=== PATIENT | female | born 1975 | race Two or more races ===

== ENCOUNTER → 2020-05-16 | Outpatient (CLI) | payer OTHER ==
--- NOTE | 2020-05-27 15:39 | REPMRS ---
Patient History The patient states she has not had a clinical breast exam in over a year. Family history of endometrial cancer at age 72 in paternal grandmother, pancreatic cancer at age 60 in maternal grandmother. Digital Woman Screen Mammo: May 16, 2020 - Exam #: [id number] Bilateral CC and MLO view(s) were taken. Technologist: Stephany Dunn, Technologist No prior studies available for comparison. FINDINGS: The breast tissue is heterogeneously dense. This may lower the sensitivity of mammography. The Volpara volumetric breast density category is: C. There is no evidence of dominant mass, architectural distortion, or grouped microcalcification typical of malignancy. 3-D tomosynthesis shows no additional findings. Assessment: BI-RADS/ACR category 1 mammogram. Negative Mammogram. Recommendation Routine screening mammogram of both breasts in 1 year (for women over age 40). This patient's [facility] Lifetime Breast Cancer RIsk is estimated at %. This mammogram was interpreted with the aid of an FDA-approved computer-aided dectection system. Electronically Signed By: Vazquez Delgado MD 05/27/20 [id number]
== END ==
LOC: M WHC 14:51
PROVIDERS: ATTEND Nurse Practitioner Primary Care
DX: Z12.31 Encounter for screening mammogram for malignant neoplasm of breast (principal); Z80.49 Family history of malignant neoplasm of other genital organs; Z80.0 Family history of malignant neoplasm of digestive organs

== ENCOUNTER → 2020-09-09 | Outpatient (CLI) | payer OTHER ==
--- NOTE | 2020-09-09 16:12 | REP ---
INDICATION: S/P ENDROMETRIAL BX W/ PELVIC PAIN. COMPARISON: None TECHNIQUE: Transvesical and transvaginal imaging FINDINGS: Uterus measures 7.5 x 4.2 x 5.2 cm. There is a tiny solid nodule in the lower anterior uterine segment which measures 1.3 cm. The endometrial echo complex is smooth and unremarkable appearing measuring 9 mm in its greatest thickness. There is a small amount of free fluid in the cul-de-sac. The right ovary measures 4 x 2.8 x 3.1 cm with an RI 0.52. Within the right ovary there is a 2.1 x 2.3 x 1.8 cm sized complex cystic appearing structure. Left ovary measures 3.5 x 1.9 x 2.6 cm and is within normal limits with an RI 0.47. IMPRESSION: 1. Likely small uterine leiomyoma as described above. 2. Likely decompressing right ovarian cyst as described above. <Electronically signed by Champ Multani > 09/09/20 [id number]
== END ==
LOC: M RAD 15:14
PROVIDERS: ATTEND Obstetrics & Gynecology
DX: R10.2 Pelvic and perineal pain (principal)

== ENCOUNTER → 2022-04-07 | Outpatient (REF) | payer OTHER ==
[~2022-04-07] MED LIST: ASPI1CHW2 PO; AZEL0.1S NARES; CETI-24 PO; FLUTISP NARES; OLOP5DRO16 OU; OXYB10TA23 PO; VITA100093 PO
== END ==
LOC: M LAB REF 16:40
PROVIDERS: ATTEND Physician Assistant
DX: R05.1 Acute cough (principal)